=== PATIENT | female | born 1960 | race Caucasian/White ===

== ENCOUNTER 2017-11-11 08:29 | Day surgery (SDC) | payer OTHER ==
[2017-11-11] MEDS: NS 1,000 ML IV (09:15)
[2017-11-11] MEDS ORDERED: PROPOFOL 500 MG/50 ML VIAL As Ordered (10:13)
[2017-11-11] MEDS ORDERED: LIDOCAINE 2% INJ 100 MG/5 ML SDV (FOR ANES.) As Ordered (10:13)
== END 2017-11-11 10:55 | disposition home or self-care (01) ==
LOC: M OPP 08:29
DX: Z12.11 Encounter for screening for malignant neoplasm of colon (principal); K64.0 First degree hemorrhoids; E03.9 Hypothyroidism, unspecified; Z79.899 Other long term (current) drug therapy; Z80.7 Family history of other malignant neoplasms of lymphoid, hematopoietic and related tissues
CPT/HCPCS: G0121

== ENCOUNTER 2020-06-05 16:22 | Emergency (ER) | payer OTHER ==
[~2020-06-05] VITALS: Ht 170.2 cm; Wt 74.3 kg
[~2020-06-05 16:22] MED LIST: SYNT75TA PO
[2020-06-05] MEDS ORDERED: BACT800T5 PO ×2 (16:31→18:31)
[2020-06-05] MEDS ORDERED: LIDOCAINE 1% MDV 20ML VIAL SC ONE (17:45)
[2020-06-05 18:56] VITALS: BP 188/77
== END 2020-06-05 19:32 | disposition home or self-care (01) ==
LOC: M ED 16:22
DX: L02.232 Carbuncle of back [any part, except buttock and flank] (principal)

== ENCOUNTER → 2020-07-05 | Outpatient (REF) | payer OTHER ==
[~2020-07-05] MED LIST changes: +BACT800T5 PO
== END ==
LOC: M LAB REF 09:17
PROVIDERS: ATTEND Surgery
DX: L72.3 Sebaceous cyst (principal)